=== PATIENT | male | born 1970 | race Caucasian/White ===

== ENCOUNTER 2017-09-17 09:37 | Emergency (ER) | payer OTHER ==
[2017-09-17 09:41] VITALS: BP 111/72; PULSE 72; TEMP 98; BMI 28.0
[2017-09-17] MEDS ORDERED: KETOROLAC TROMETHAMINE 60 MG/2 ML VIAL IM ONE (10:12)
[2017-09-17] MEDS ORDERED: KETOROLAC TROMETHAMINE 60 MG/2 ML VIAL ONE (10:13)
--- NOTE | 2017-09-17 10:36 | PDOC ---
History of Present Illness - General Chief Complaint: Injury Stated Complaint: LT LEG PAIN Time Seen by Provider: 09/17/17 10:09 History Source: Patient Exam Limitations: No Limitations (L knee pain after a mistep walking outside at 2am) Past History - Travel Close contact w/someone who was outside of country & ill: No - Past Medical History Allergies/Adverse Reactions: Allergies Allergy/AdvReac Type Severity Reaction Status Date / Time No Known Allergies Allergy Verified 09/17/17 09:41 Home Medications: Ambulatory Orders Naproxen 375 mg PO BID 10 Days #30 tablet 09/17/17 COPD: No - Surgical History Appendectomy: Yes - Suicide/Smoking/Psychosocial Hx Smoking History: Current some day smoker Number of Cigarettes Smoked Daily: 1 Information on smoking cessation initiated: No Review of Systems - Review of Systems Is the patient limited Kinyarwanda proficient: No Constitutional: No: Chills, Fever Musculoskeletal: Yes: Joint Pain, Joint Swelling, Other (L knee pain). No: Back Pain *Physical Exam - Vital Signs Last Vital Signs Temp Pulse Resp BP Pulse Ox 98 F 72 18 111/72 99 09/17/17 09:39 09/17/17 09:39 09/17/17 09:39 09/17/17 09:39 09/17/17 09:39 - Physical Exam General Appearance: Yes: Nourished Extremity: positive: Normal Capillary Refill, Normal Range of Motion, Swelling, Other (L knee: + swelling in medial aspect of knee, FROM, limping gait) ED Treatment Course - RADIOLOGY Radiology Studies Ordered: Category Date Time Status KNEE 2 POS-LEFT [RAD] Stat Radiology 09/17/17 10:12 Taken - Medications Given in the ED: ED Medications Discontinued Medications Generic Name Dose Route Start Last Admin Trade Name Freq PRN Reason Stop Dose Admin Ketorolac Tromethamine 60 mg 09/17/17 10:12 09/17/17 10:17 Toradol Injection - IM 09/17/17 10:13 60 mg ONCE ONE Administration Medical Decision Making - Medical Decision Making 09/17/17 10:35 47y/o M with L knee pain after a mistep in the sidewalk at 2am, denies LOC or head trauma. He took Tylenol for pain control, + limping gait, states bone came out and he pushed it back exam with swelling in medial aspect of L knee joint, no obvious deformity noted xray, pain control dispo pending 09/17/17 10:53 xray neg for fracture momo wrap motrin prn pain, RICE instructions, f/u ortho of pain persist *DC/Admit/Observation/Transfer Diagnosis at time of Disposition: Knee pain, left Qualifiers: Chronicity: acute Qualified Code(s): M25.562 - Pain in left knee - Discharge Dispostion Disposition: HOME Condition at time of disposition: Stable Decision to Admit order: No - Prescriptions Prescriptions: Naproxen 375 mg PO BID 10 Days #30 tablet - Referrals Referrals: [facility] [Provider Group] - Patient Instructions Printed Discharge Instructions: DI for Knee Sprain - Post Discharge Activity
== END 2017-09-17 11:16 | disposition home or self-care (01) ==
LOC: JERFT 09:37
PROC: 3E0233Z Introduction of Anti-inflammatory into Muscle, Percutaneous Approach (ICD-10-PCS; principal; 2017-09-17)
DX: S89.82XA Other specified injuries of left lower leg, initial encounter (principal); W01.0XXA Fall on same level from slipping, tripping and stumbling without subsequent striking against object, initial encounter; Y93.01 Activity, walking, marching and hiking; Y92.480 Sidewalk as the place of occurrence of the external cause; Y99.8 Other external cause status
CPT/HCPCS: 73560-TC-LT-FY; 96372; 99281-25

== ENCOUNTER 2018-03-15 10:37 | Day surgery (SDC) | payer OTHER ==
[~2018-03-15 10:37] MED LIST: BUPIVACAINE HCL/PF (5 MG/ML) 30 ML VIAL IJ ONE; LIDOCAINE HCL 1%, 10 MG/ML (50 mL VIAL) IJ ONE
[2018-03-15 10:56] VITALS: BMI 27.3
[2018-03-15] MEDS ORDERED: DIPHTH,PERTUSS(ACELL),TET 0.5 ML DISP.SYRIN IM ONE ×2 (11:12→12:04)
[2018-03-15] MEDS ORDERED: ACETAMINOPHEN WITH CODEINE 300MG/30MG TABLET PO STA (11:13)
[2018-03-15] MEDS ORDERED: CEPHALEXIN MONOHYDRATE 500 MG CAPSULE (UD) PO ONE (11:13)
--- NOTE | 2018-03-15 11:16 | PDOC ---
History of Present Illness - General Chief Complaint: Injury Stated Complaint: LACERATION Time Seen by Provider: 03/15/18 11:11 History Source: Patient, Family Exam Limitations: No Limitations - History of Present Illness Initial Comments: 03/15/18 11:15 was using circular saw today and caught left hand fourth digit with blade incurring a stellate laceration not involving nail bed. 03/15/18 13:03 Occurred: reports: just prior to arrival, this morning Severity: reports: moderate Pain Location: reports: upper extremity (left 4th distal digit) Method of Injury: Yes: direct blow Associated Symptoms (Fall): denies symptoms Past History - Travel Traveled outside of the country in the last 30 days: No Close contact w/someone who was outside of country & ill: No - Past Medical History Allergies/Adverse Reactions: Allergies Allergy/AdvReac Type Severity Reaction Status Date / Time No Known Allergies Allergy Verified 03/15/18 11:09 Home Medications: Ambulatory Orders NK [No Known Home Medication] 03/15/18 COPD: No - Surgical History Appendectomy: Yes - Suicide/Smoking/Psychosocial Hx Smoking History: Never smoked Have you smoked in the past 12 months: No Number of Cigarettes Smoked Daily: 0 Information on smoking cessation initiated: No Hx Alcohol Use: No Drug/Substance Use Hx: No Substance Use Type: None Review of Systems - Review of Systems Able to Perform ROS?: Yes Is the patient limited Montserratian proficient: Yes Constitutional: Yes: See HPI. No: Symptoms Reported, Fever, Malaise HEENTM: No: Symptoms Reported Respiratory: No: Symptoms reported Musculoskeletal: Yes: Symptoms Reported, See HPI Integumentary: Yes: Symptoms Reported, See HPI, Other All Other Systems: Reviewed and Negative *Physical Exam - Vital Signs Last Vital Signs Temp Pulse Resp BP Pulse Ox 97.9 F 17 L 63 H 116/80 100 03/15/18 10:48 03/15/18 10:48 03/15/18 10:48 03/15/18 10:48 03/15/18 10:48 - Physical Exam General Appearance: Yes: Nourished, Appropriately Dressed, Apparent Distress, Moderate Distress HEENT: positive: JEAN CARLOS, Normal ENT Inspection, Normal Voice, TMs Normal, Pharynx Normal Neck: positive: Supple. negative: Tender Respiratory/Chest: positive: Lungs Clear, Normal Breath Sounds Gastrointestinal/Abdominal: positive: Soft. negative: Tender Extremity: positive: Normal Capillary Refill, Normal Range of Motion (range of motion is inta to left hand fourth digit), Tender (Range of motion intact with a complete avulsion of distal aspect of the palmar surface of fourth phalanx , no exposed bone or other structures. No nailbed involvement). negative: Normal Inspection Integumentary: positive: Normal Color, Warm Neurologic: positive: transportation clerk II-XII NML intact, Fully Oriented, Alert, Normal Mood/ Affect, Normal Response, Motor Strength 5/5 Moderate Sedation - Procedure Monitoring Vital Signs: Procedure Monitoring Vital Signs Temperature 97.9 F 03/15/18 10:48 Pulse Rate 17 L 03/15/18 10:48 Respiratory Rate 63 H 03/15/18 10:48 Blood Pressure 116/80 03/15/18 10:48 O2 Sat by Pulse Oximetry (%) 100 03/15/18 10:48 ED Treatment Course - RADIOLOGY Radiology Studies Ordered: Category Date Time Status FINGER(S) LEFT [RAD] Stat Radiology 03/15/18 11:12 Ordered Progress Note - Progress Note Progress Note: finger avulsion laceration, per Dr. Toledo will be admitted for surgical repair this afternoon. Patient and family updated to plan. Medical Decision Making - Medical Decision Making 03/15/18 12:27 case discussed with both Drs. Saxena, plastic surgery and Dr. Ayala, orthopedic surgery who have both stated were unable to accept the case. was recommended transfer for appropriate surgical intervention. 03/15/18 13:00 case was discussed wit contacted Dr. Toledo. who has agreed to perform surgical intervention today at [facility] *DC/Admit/Observation/Transfer Diagnosis at time of Disposition: Laceration of finger Qualifiers: Encounter type: initial encounter Finger: ring finger Damage to nail status: without damage Foreign body presence: without foreign body Laterality: left Qualified Code(s): S61.215A - Laceration without foreign body of left ring finger without damage to nail, initial encounter - Discharge Dispostion Condition at time of disposition: Stable Decision to Admit order: Yes - Referrals - Patient Instructions - Post Discharge Activity - Transfer to Acute Care Facility Accepting Physician:: Tre
[2018-03-15] MEDS ORDERED: CEPHALEXIN MONOHYDRATE 500 MG CAPSULE (UD) ONE (12:03)
[2018-03-15] MEDS ORDERED: ACETAMINOPHEN WITH CODEINE 300MG/30MG TABLET ONE (12:04)
--- NOTE | 2018-03-15 13:14 | HP ---
Admitting History and Physical - Admission Chief Complaint: left ring finger injury History of Present Illness: 47yo male was using circular saw today and caught left hand fourth digit with blade incurring a stellate laceration not involving nail bed. we were called to assess. History Source: Patient, Medical Record Limitations to Obtaining History: No Limitations - Smoking History Smoking history: Never smoked Have you smoked in the past 12 months: No Aproximately how many cigarettes per day: 0 - Alcohol/Substance Use Hx Alcohol Use: No Home Medications - Allergies Allergies/Adverse Reactions: Allergies Allergy/AdvReac Type Severity Reaction Status Date / Time No Known Allergies Allergy Verified 03/15/18 11:09 - Home Medications Home Medications: Ambulatory Orders NK [No Known Home Medication] 03/15/18 Review of Systems - Review of Systems Constitutional: denies: Chills, Fever Eyes: denies: Blind Spots, Recent Change in Vision HENT: denies: Difficult Swallowing, Throat Pain Neck: denies: Decreased ROM, Tenderness Cardiovascular: denies: Chest Pain, Palpitations Respiratory: denies: Cough, SOB Gastrointestinal: denies: Abdominal Pain, Constipation, Diarrhea Genitourinary: denies: Discharge, Dysuria, Flank Pain Breasts: reports: No Symptoms Reported. denies: Pain Musculoskeletal: denies: Extremity Pain, Muscle Cramps, Muscle Weakness Integumentary: denies: Erythema, Pruritis, Rash Neurological: denies: Seizure, Syncope Endocrine: denies: Unexplained Weight Gain, Unexplained Weight Loss Hematology/Lymphatic: denies: Easily Bruised, Excessive Bleeding Psychiatric: denies: Anxiety, Depression Physical Examination Vital Signs: Vital Signs Temperature 97.9 F 03/15/18 10:48 Pulse Rate 17 L 03/15/18 10:48 Respiratory Rate 63 H 03/15/18 10:48 Blood Pressure 116/80 03/15/18 10:48 O2 Sat by Pulse Oximetry (%) 100 03/15/18 10:48 Constitutional: Yes: Well Nourished, No Distress, Calm Eyes: Yes: Conjunctiva Clear, EOM Intact HENT: Yes: Atraumatic, Normocephalic Neck: Yes: Supple, Trachea Midline Cardiovascular: Yes: Regular Rate and Rhythm, S1, S2 Respiratory: Yes: Regular, CTA Bilaterally Gastrointestinal: Yes: Normal Bowel Sounds, Soft. No: Tenderness, Tenderness, Epigastrium, Tenderness, Rebound ...Rectal Exam: No: Sphincter Tone Normal, Sphincter Tone Poor Renal/: No: CVA Tenderness - Left, CVA Tenderness - Right Musculoskeletal: No: Muscle Pain, Muscle Weakness Edema: No Peripheral Pulses WNL: Yes Peripheral Pulses: Left Radial: 2+, Right Radial: 2+, Left Doralis Pedis: 2+, Right Dorsalis Pedis: 2+ Wound/Incision: Yes: Bleeding, Unapproximated (left) Neurological: Yes: Alert, Oriented Psychiatric: Yes: Alert, Oriented Imaging - Results X-ray: Report Reviewed, Image Reviewed (no fracture or disclocation) Problem List - Problems (1) Laceration of left ring finger Assessment/Plan: Left ring finger pad avulsion NPO and IVF hydration basic labs OR for left fing finger tip revision with V-Y flap reconstruction vs skin graft Discussed with patient risks, benefits and alternatives of laparoscopic possible open ectomy, including but not limited to bleeding, infection, injury to adjacent structures, need for further procedures, ; alternatives include antibiotics, delayed or no surgery - risks of this include failure of nonoperative therapy, sepsis, recurrence, . Patient desires to proceed with operation - will take to OR for above. Informed consent signed for same. Code(s): S61.215A - LACERATION W/O FB OF L RNG FNGR W/O DAMAGE TO NAIL, INIT Qualifiers: Encounter type: initial encounter Damage to nail status: without damage Foreign body presence: without foreign body Qualified Code(s): S61.215A - Laceration without foreign body of left ring finger without damage to nail, initial encounter (2) Contact with powered saw as cause of accidental injury Code(s): W31.2XXA - CONTACT W POWERED WOODWORKING AND FORMING MACHINES, INIT (3) Laceration of left ring finger with complication Code(s): S61.215A - LACERATION W/O FB OF L RNG FNGR W/O DAMAGE TO NAIL, INIT (4) Laceration of left ring finger with foreign body w/o damage to nail Code(s): S61.225A - LACERATION W FB OF L RNG FNGR W/O DAMAGE TO NAIL, INIT Qualifiers: Encounter type: initial encounter Qualified Code(s): S61.225A - Laceration with foreign body of left ring finger without damage to nail, initial encounter (5) Laceration of finger Code(s): S61.219A - LACERATION W/O FB OF UNSP FINGER W/O DAMAGE TO NAIL, INIT Qualifiers: Encounter type: initial encounter Finger: ring finger Damage to nail status: without damage Foreign body presence: without foreign body Laterality: left Qualified Code(s): S61.215A - Laceration without foreign body of left ring finger without damage to nail, initial encounter
--- NOTE | 2018-03-15 13:36 | OP ---
Operative Note - Note: Operative Date: 03/15/18 Pre-Operative Diagnosis: left ring finger finger tip avulsion Operation: V-Y flap reconstrion of left fing finger tip Findings: 40% of volar pad is avulsed of glaborus skin exposed pulp Post-Operative Diagnosis: Same as Pre-op Surgeon: Huseyin Toledo Anesthesiologist/VALIDATION SOFTWARE FACILITATOR: Melvina Ross Anesthesia: General, Local (lidocaine 1% and marcaine 0.5% ) Estimated Blood Loss (mls): 5 Fluid Volume Replaced (mls): 900
--- NOTE | 2018-03-15 13:36 | DS ---
Physical Examination Vital Signs: Vital Signs Temperature 97.9 F 03/15/18 10:48 Pulse Rate 17 L 03/15/18 10:48 Respiratory Rate 63 H 03/15/18 10:48 Blood Pressure 116/80 03/15/18 10:48 O2 Sat by Pulse Oximetry (%) 100 03/15/18 10:48 Constitutional: Yes: Well Nourished, No Distress, Calm Eyes: Yes: Conjunctiva Clear, EOM Intact HENT: Yes: Atraumatic, Normocephalic Neck: Yes: Supple, Trachea Midline Cardiovascular: Yes: Regular Rate and Rhythm, S1, S2 Respiratory: Yes: Regular, CTA Bilaterally Gastrointestinal: Yes: Normal Bowel Sounds, Soft. No: Tenderness, Tenderness, Epigastrium, Tenderness, Rebound ...Rectal Exam: Yes: Deferred Renal/: No: CVA Tenderness - Left, CVA Tenderness - Right Musculoskeletal: No: Muscle Pain, Muscle Weakness Extremities: No: Cool, Cyanosis Edema: No Peripheral Pulses WNL: Yes Peripheral Pulses: Left Radial: 2+, Right Radial: 2+, Left Doralis Pedis: 2+, Right Dorsalis Pedis: 2+ Integumentary: No: Jaundice, Rash Wound/Incision: Yes: Clean/Dry, Well Approximated, Dressing Dry and Intact Neurological: Yes: Alert, Oriented Psychiatric: Yes: Alert, Oriented Discharge Summary Reason For Visit: LACERATION Current Active Problems Contact with powered saw as cause of accidental injury (Acute) Laceration of finger (Acute) Laceration of left ring finger (Acute) Laceration of left ring finger with complication (Acute) Laceration of left ring finger with foreign body w/o damage to nail (Acute) Procedures: Principal: V-Y flap reconstruction of left ring finger Hospital Course: admitted for ambulatory surgical procedure. uneventful procedure. stable for discharge home Condition: Improved - Instructions Diet, Activity, Other Instructions: Postoperative instructions: You had a left ring finger V-Y flap reconstruction of tip on 03/15/[address] Huseyin Toledo of [facility]. Activity: Resume your usual activities gradually, but no heavy exertion or lifting more than 10-15 pounds for 4-6 weeks. Keep dressing clean and dry until follow up appointment. Eat lightly at first, but advance to your usual diet as tolerated. Pain: For pain, you may use and alternate Tylenol (acetaminophen) 1-2 pills and/ or ibuprofen 200 mg (1-3 pills) every 6 hours each as needed; this means that you can take one OR the other at 3-hour intervals. If you are prescribed a Tylenol/narcotic combination for severe pain, use it instead of plain Tylenol as needed and switch back when your pain starts decreasing. Do not take more than 4000 mg of acetaminophen in a day. Take medications as prescribed or indicated on the labeling. Follow-up: Call Dr. Toledo' office at [phone] to make your postop appointment (Tuesday in approximately 2 weeks after surgery as advised). Clinic is held in the [facility] on the first floor of [facility]. Call the office if you have: * increasing pain not responsive to pain medication * fever of 101F or higher * unusual or increasing bleeding or drainage from wounds * increasing redness or swelling at wound sites Also, see your primary medical doctor within 1-2 weeks. Disposition: HOME - Home Medications Comprehensive Discharge Medication List: Ambulatory Orders NK [No Known Home Medication] 03/15/18
[2018-03-15] MEDS ORDERED: AMPICILLIN NA/SULBACTAM NA 3 GM in SODIUM CHLORIDE 100 ML IVPB SCH (13:37)
[2018-03-15] MEDS ORDERED: morphine CARPU-JECT 2 MG/1 ML DISP.SYRIN IVPUSH ONE (13:52)
[2018-03-15] MEDS ORDERED: ACETAMINOPHEN INJECTION 100 ML IVPB ONE (14:22)
[2018-03-15] MEDS ORDERED: PROPOFOL 20 ML ONE ×4 (14:29→18:51)
[2018-03-15] MEDS ORDERED: ONDANSETRON 4 MG/2 ML VIAL IVPUSH PRN ×2 (14:34→19:54)
[2018-03-15 14:37] LABS: BASO % 0.2 % (0-2.0); EOS % 1.6 % (0-4.5); HEMATOCRIT 46.6 % (35.4-49); HEMOGLOBIN 15.1 GM/dL (11.7-16.9); LYMPH % 34.4 % (8-40); MCH 29.4 pg (25.7-33.7); MCHC 32.4 g/dl (32.0-35.9); MEAN CELL VOLUME 90.9 fl (80-96); MEAN PLT VOLUME 6.9 fl (7.5-11.1); MONO % 4.9 % (3.8-10.2); NEUT % 58.9 % (42.8-82.8); PLATELET COUNT 239 K/MM3 (134-434); RBC 5.13 M/mm3 (4.00-5.60); RDW 12.9 % (11.9-15.9); WHITE BLOOD COUNT 7.1 K/mm3 (4.0-10.0)
[2018-03-15] MEDS ORDERED: LACTATED RINGERS SOLUTION 1,000 ML IV SCH (14:45)
[2018-03-15 15:01] LABS: ALBUMIN 4.4 g/dl (3.4-5.0); ALK PHOS 89 U/L (45-117); ANION GAP 8 MMOL/L (8-16); BILIRUBIN,TOTAL 0.4 mg/dL (0.2-1); BLOOD UREA NITROGEN 13 mg/dL (7-18); CALCIUM 8.7 mg/dL (8.5-10.1); CHLORIDE 102 mmol/L (98-107); CO2 28 mmol/L (21-32); CREATININE 0.7 mg/dL (0.55-1.3); GLUCOSE,RANDOM 90 mg/dL (74-106); POTASSIUM 4.1 mmol/L (3.5-5.1); SGOT/AST 22 U/L (15-37); SGPT/ALT 28 U/L (13-61); SODIUM 138 mmol/L (136-145); TOT PROT 7.6 g/dl (6.4-8.2)
[2018-03-15] MEDS ORDERED: oxyCODONE HCL 5 MG TABLET ONE (15:38)
[2018-03-15] MEDS ORDERED: oxyCODONE HCL 5 MG TABLET PO ONE (15:42)
[2018-03-15] MEDS ORDERED: LIDOCAINE HCL 1%, 10 MG/ML (20ML VIAL) ONE (17:37)
[2018-03-15] MEDS ORDERED: BUPIVACAINE HCL/PF 0.5% (5MG/ML) 10 ML VIAL ONE (17:37)
[2018-03-15] MEDS ORDERED: BUPIVACAINE HCL/PF 0.5% (5MG/ML) 10 ML VIAL IJ ONE ×2 (17:51→19:41)
[2018-03-15] MEDS ORDERED: MIDAZOLAM HCL 2 MG/2 ML SINGLE DOSE VIAL ONE ×2 (18:51)
[2018-03-15] MEDS ORDERED: LIDOCAINE HCL 1%, 10 MG/ML (20ML VIAL) NR ONE (19:11)
[2018-03-15] MEDS ORDERED: ACETAMINOPHEN 1000 MG/100 ML VIAL (NON FORMULARY) IVPB ONE ×2 (19:30→19:50)
[2018-03-15] MEDS ORDERED: BACITRACIN 15 GM TUBE TOPICAL OINTMENT ONE (19:39)
[2018-03-15 21:12] VITALS: BP 117/65; PULSE 56; TEMP 98.4
[2018-03-15] MEDS ORDERED: oxyCODONE HCL 5 MG TABLET PO PRN (21:44)
--- NOTE | 2018-03-29 06:16 | OP ---
DATE OF OPERATION: 03/15/2018 PREOPERATIVE DIAGNOSIS: Left ring finger tip avulsion of the pad. POSTOPERATIVE DIAGNOSIS: Left ring finger tip avulsion of the pad. PROCEDURE: V-Y flap reconstruction, left ring fingertip. ATTENDING SURGEON: Huseyin Toledo MD BED PLACEMENT COORDINATOR: No one. ANESTHESIOLOGIST: Melvina Ross MD ANESTHESIA TYPE: General with local. Local consisted of 0.5% Marcaine, 1% lidocaine, a total of 10 mL given in a digital block fashion. ESTIMATED BLOOD LOSS: 5 mL. INTRAVENOUS FLUID ADMINISTERED: mL. SPECIMENS: None. IMPLANTS: None. INDICATION: Patient is presenting with a volar laceration of the left ring fingertip. He was counseled regarding risks, benefits and alternatives to revision amputation versus V-Y flap reconstruction. He signed informed consent and was taken for the procedure. PROCEDURE: Patient was brought to the operating room. He was placed in the supine position on the operating table with the left arm extended 90 degrees perpendicular to the body's midline axis. Left ring finger was prepped and draped into the standard surgical field. Patient had SCDs placed. He received intravenous antibiotics prior to start of surgery. He was induced under general anesthesia and endotracheally intubated at which point we began with a formal timeout identifying the operative site and digit as left ring finger. With all parties in agreement we began with exsanguination of the extremity and examination closely of the finger 's pad. The finger pad was noted to have approximately 60% of its volar pad area avulsed. The decision was made to debride the avulsed pad at which point a small amount of the distal phalanx was exposed. This was debrided back until it was adequately covered with pad to both rongeur at which point the distal aspect of the finger's pad was elevated from the periosteum of the bone and we began to construct a V-Y flap for reconstruction of the tip. A V-shaped incision was fashioned in the remaining pad which was then advanced on a pedicle forward and the "V" stem was closed into a "Y" with 4-0 nylon sutures in interrupted fashion ablating some of the glabrous skin and pad defect into a rounded tip. This was completed. Bacitracin, Xeroform and gauze dressing was placed. He was awoken from general anesthesia after a sterile dressing was placed in stable condition having tolerated the procedure well. He was given instructions to follow up in a period of 2 weeks. He was provided with oral antibiotics. MD OSMAR Love/[id number]
== END 2018-03-15 22:15 | disposition home or self-care (01) ==
LOC: JER 10:37 → JERFT 10:37 → JASUSAT 14:34 → J6S 21:05 → JASUSAT 22:15
PROC: 0JBK0ZZ Excision of Left Hand Subcutaneous Tissue and Fascia, Open Approach (ICD-10-PCS; 2018-03-15)
PROC: 0HXGXZZ Transfer Left Hand Skin, External Approach (ICD-10-PCS; principal; 2018-03-15 13:30)
DX: S61.215A Laceration without foreign body of left ring finger without damage to nail, initial encounter (principal); X58.XXXA Exposure to other specified factors, initial encounter; Y93.9 Activity, unspecified; Y92.9 Unspecified place or not applicable; Y99.9 Unspecified external cause status
CPT/HCPCS: 36415; 73140-TC-LT-FY; 80053; 85025; 86850; 86900; 86901; 90715; 94760; 99282-25; J0131

== ENCOUNTER 2018-03-16 11:38 | Emergency (ER) | payer OTHER ==
[2018-03-16 11:49] VITALS: BMI 28.2
--- NOTE | 2018-03-16 13:02 | PDOC ---
History of Present Illness - General Chief Complaint: Pain Stated Complaint: POST OP PAIN - History of Present Illness Initial Comments: The patient is a 47M w/ no reported PMH who is POD 1 from a V-Y flap reconstruction of his L ring finger who presents for evaluation of pressure/ pain under his post-op dressing. He denies changes in sensation or bleeding. He has taken his Rx'ed oxycodone with little relief. He denies fevers/chills, other extremity pain, redness around the dressing, or any other complaints. 03/16/18 12:57 Past History - Past Medical History Allergies/Adverse Reactions: Allergies Allergy/AdvReac Type Severity Reaction Status Date / Time No Known Allergies Allergy Verified 03/16/18 11:42 Home Medications: Ambulatory Orders Amox-Tr/K Cl [Augmentin - 875Mg Tablet] 1 tab PO BID #14 tablet 03/15/18 Oxycodone HCl/Acetaminophen [Percocet 5/325 -] 1 tab PO Q6H #40 tab MDD 5 COPD: No - Surgical History Appendectomy: Yes - Immunization History Immunization Up to Date: Yes - Suicide/Smoking/Psychosocial Hx Smoking History: Never smoked Have you smoked in the past 12 months: No Number of Cigarettes Smoked Daily: 0 Hx Alcohol Use: No Drug/Substance Use Hx: No Substance Use Type: None Review of Systems - Review of Systems Able to Perform ROS?: Yes Comments:: GENERAL/CONSTITUTIONAL: No fever or chills. No weakness HEAD, EYES, EARS, NOSE AND THROAT: No change in vision. No ear pain or discharge. No sore throat CARDIOVASCULAR: No chest pain or shortness of breath GASTROINTESTINAL: No nausea, vomiting, diarrhea or constipation MUSCULOSKELETAL: per HPI SKIN: No rash NEUROLOGIC: No headache, vertigo, loss of consciousness, or change in strength/ sensation HEMATOLOGIC/LYMPHATIC: No anemia, easy bleeding, or history of blood clots ALLERGIC/IMMUNOLOGIC: No hives or skin allergy 03/16/18 13:00 Is the patient limited Macedonian proficient: No *Physical Exam - Vital Signs Last Vital Signs Temp Pulse Resp BP Pulse Ox 98.1 F 61 146 H 116/83 98 03/16/18 11:43 03/16/18 11:43 03/16/18 11:43 03/16/18 11:43 03/16/18 11:43 - Physical Exam Comments: GENERAL: Awake, alert, and fully oriented, in no acute distress HEAD: No signs of trauma, normocephalic, atraumatic EYES: PERRLA, EOMI, sclera anicteric, conjunctiva clear LUNGS: No distress, speaks full sentences, clear to auscultation bilaterally HEART: Regular rate and rhythm, normal S1 and S2, no murmurs appreciated, peripheral pulses normal and equal bilaterally ABDOMEN: Soft, nontender. No guarding, no rebound EXTREMITIES : Normal inspection, Normal range of motion, no edema. No clubbing or cyanosis NEUROLOGICAL: Cranial nerves II through XII grossly intact. Normal speech, no focal sensorimotor deficits RUE: Inspection: No erythema or ecchymosis. No tenderness, no obvious abnormalities, no open wounds. Compartments soft and compressible, pain within proportion, no pain to passive stretch Sensation: sensation present to light touch m/r/u n Motor: intact AIN/PIN/Ulnar in hand; 5/5 Wrist flex/ext; 5/5 Elbow flex/ext; 5/ 5 Shoulder ABd,Flex Vascular: 2+ radial pulse palpated, BCR all fingers <2 sec. LUE: Inspection: Post-operative dressing in place over ring and little finger down to wrist. Dressing is C/D/I. Dressing removed; L distal fat pad visible, no hemorrhage, no purulence, no surrounding erythema; Compartments soft and compressible, pain within proportion, no pain to passive stretch Sensation: sensation present to light touch m/r/u n Motor: 5/5 Wrist flex/ext; 5/5 Elbow flex/ext; 5/5 Shoulder ABd,Flex Vascular: 2+ radial pulse palpated, BCR all fingers <2 sec. 03/16/18 13:01 Moderate Sedation - Procedure Monitoring Vital Signs: Procedure Monitoring Vital Signs Temperature 98.1 F 03/16/18 11:43 Pulse Rate 61 03/16/18 11:43 Respiratory Rate 146 H 03/16/18 11:43 Blood Pressure 116/83 03/16/18 11:43 O2 Sat by Pulse Oximetry (%) 98 03/16/18 11:43 Medical Decision Making - Medical Decision Making The patient is a 47M POD1 from L ring finger v-y flap reconstruction s/p laceration who presents for pressure-like pain under the dressing. 03/16/18 13:01 Dressing taken down. Fat pad visible. Spoke w/ Dr. Toledo who states this is the expected appearance of the area post- op Wound re-dressed Patient counseled about post-operative pain and management Discharge instructions and return precautions given Patient w/ appointment w/ Dr. Toledo next week Plan for D/C w/ f/u Plan discussed w/ patient who is in agreement and verbalized understanding Dispo: home 03/16/18 13:33 *DC/Admit/Observation/Transfer Diagnosis at time of Disposition: Hand pain, left Laceration of left ring finger Qualifiers: Encounter type: subsequent encounter Damage to nail status: unspecified Foreign body presence: without foreign body Qualified Code(s): S61.215D - Laceration without foreign body of left ring finger without damage to nail, subsequent encounter - Discharge Dispostion Disposition: HOME Condition at time of disposition: Stable Decision to Admit order: No - Referrals Referrals: Huseyin Toledo MD [Staff Physician] - - Patient Instructions Printed Discharge Instructions: How to Use a Sling Additional Instructions: You were seen in the Emergency Department today for hand pain after surgery yesterday. Please review the handout provided at discharge. Continue to keep the hand elevated at all times. Maintain your follow up with your surgeon and take your medications as directed. Return to the Emergency Department if you develop fevers, chills, worsening pain , redness around the dressing, increased bleeding, or any new/concerning symptoms. - Post Discharge Activity
--- NOTE | 2018-03-16 14:23 | PDOC ---
Attending Attestation - Resident Resident Name: Demar Mock - ED Attending Attestation I have performed the following: I have examined & evaluated the patient, The case was reviewed & discussed with the resident, I agree w/resident's findings & plan - HPI HPI: 03/16/18 14:14 47-year-old male POD#1 L 4th finger laceration repair after accident with circular saw presents now with throbbing in his finger. no f/c/numbness/bleeding , no new swelling or discoloration. maintained dressing, taking abx. - Physicial Exam PE: 03/16/18 14:23 VSS, RR 18 (misprint on triage) L hand: dressing taken down, sutures in place, some granulation tissue visible but normal per Dr. Toledo, otherwise no drainage or bleeding, no pus. adequately perfused - Medical Decision Making 03/16/18 14:25 47-year-old male with finger pain status post laceration repair, no evidence of infection or neurovascular compromise, well appearing. likely normal post-op day 1 inflammatory response, appearance expected and normal as per Dr. Toledo. dressing reapplied, reassured, encourage elevation (will provide sling), continue previously prescribed abx
[2018-03-16 14:24] VITALS: BP 115/80; PULSE 64; TEMP 98
== END 2018-03-16 14:26 | disposition home or self-care (01) ==
LOC: JER 11:38
DX: G89.18 Other acute postprocedural pain (principal); Z48.817 Encounter for surgical aftercare following surgery on the skin and subcutaneous tissue; S61.215D Laceration without foreign body of left ring finger without damage to nail, subsequent encounter; Z48.01 Encounter for change or removal of surgical wound dressing
CPT/HCPCS: 99281-25

== ENCOUNTER 2020-03-06 15:56 | Emergency (ER) | payer OTHER ==
[2020-03-06 16:13] VITALS: TEMP 98.5; BMI 29.0
[2020-03-06] MEDS ORDERED: FAMOTIDINE 20 MG/50 ML IVPB 20 MG/50 ML MG IVPB ONE ×2 (16:49→16:58)
[2020-03-06] MEDS ORDERED: MAG HYDROX/AL HYDROX/SIMETH 30 ML UNIT-DOSE CUP PO ONE (17:39)
[2020-03-06 17:51] LABS: BASO % 0.4 % (0-2.0); EOS % 1.4 % (0-4.5); HEMOGLOBIN 14.4 GM/dL (11.7-16.9); LYMPH % 40.6 % (8-40); MCH 30.5 pg (25.7-33.7); MCHC 33.6 g/dl (32.0-35.9); MEAN CELL VOLUME 90.8 fl (80-96); MEAN PLT VOLUME 7.5 fl (7.5-11.1); MONO % 6.7 % (3.8-10.2); NEUT % 50.9 % (42.8-82.8); PLATELET COUNT 220 K/MM3 (134-434); RBC 4.73 M/mm3 (4.00-5.60); RDW 13.1 % (11.9-15.9); WHITE BLOOD COUNT 5.9 K/mm3 (4.0-10.0)
[2020-03-06] MEDS ORDERED: MAG HYDROX/AL HYDROX/SIMETH 30 ML UNIT-DOSE CUP ONE (17:55)
[2020-03-06] MEDS ORDERED: ONDANSETRON 4 MG/2 ML VIAL IVPUSH ONE (17:56)
[2020-03-06 18:00] LABS: CHLORIDE 105 mmol/L (98-107); POTASSIUM 3.8 mmol/L (3.5-5.1); SODIUM 140 mmol/L (136-145)
[2020-03-06 18:03] LABS: ALBUMIN 4.2 g/dl (3.4-5.0); ANION GAP 5 MMOL/L (8-16); BLOOD UREA NITROGEN 17.8 mg/dL (7-18); CALCIUM 8.9 mg/dL (8.5-10.1); CO2 29 mmol/L (21-32); GLUCOSE,RANDOM 107 mg/dL (74-106); LIPASE 167 U/L (73-393)
[2020-03-06 18:06] LABS: CREATININE 0.9 mg/dL (0.55-1.3); SGOT/AST 18 U/L (15-37); SGPT/ALT 22 U/L (13-61)
[2020-03-06 18:07] LABS: BILIRUBIN,TOTAL 0.6 mg/dL (0.2-1); TOT PROT 7.1 g/dl (6.4-8.2)
[2020-03-06 18:09] LABS: ALK PHOS 77 U/L (45-117)
[2020-03-06] MEDS ORDERED: SUCRALFATE 1 GM TABLET (FP) PO ONE (18:47)
[2020-03-06] MEDS ORDERED: LIDOCAINE VISCOUS 2% ORAL/TOP 20 ML UNIT-DOSE CUP MM ONE (18:52)
[2020-03-06] MEDS ORDERED: SUCRALFATE 1 GM TABLET (FP) ONE (18:53)
[2020-03-06] MEDS ORDERED: LIDOCAINE VISCOUS 2% ORAL/TOP 20 ML UNIT-DOSE CUP ONE (18:56)
[2020-03-06 20:38] VITALS: BP 110/65; PULSE 82
== END 2020-03-06 20:37 | disposition home or self-care (01) ==
LOC: JER 15:56
PROC: 3E033GC Introduction of Other Therapeutic Substance into Peripheral Vein, Percutaneous Approach (ICD-10-PCS; principal; 2020-03-06)
PROC: 3E033GC Introduction of Other Therapeutic Substance into Peripheral Vein, Percutaneous Approach (ICD-10-PCS; 2020-03-06)
DX: R10.13 Epigastric pain (principal); K59.00 Constipation, unspecified
CPT/HCPCS: 36415; 71045-TC-FY; 74019-TC-FY; 76705-TC; 80053; 83690; 84484; 85025; 93005; 93010; 99285-25

== ENCOUNTER 2021-11-22 10:23 | Emergency (ER) | payer OTHER ==
[2021-11-22 10:27] VITALS: BP 118/83; PULSE 75; RESP 18; TEMP 99.1; BMI 29.0
== END 2021-11-22 12:32 | disposition home or self-care (01) ==
LOC: JER 10:23
DX: L72.0 Epidermal cyst (principal)
CPT/HCPCS: 99283-25; C9803-CS; U0003; U0005